=== PATIENT | male | born 1960 | race African-American/Black ===

== ENCOUNTER 2018-05-08 11:32 | Emergency (ER) | payer OTHER ==
[~2018-05-08 11:32] MED LIST: Iopamidol 370 76% 100 ML VIAL ONE
[2018-05-08 12:36] LABS: ALT (SGPT) 49 U/L (8-55); AST (SGOT) 30 U/L (5-34); Alkaline Phosphatase 62 U/L (40-150); Anion Gap 11 mmol/L (10-20); BUN (Urea Nitrogen) 11 mg/dL (8.4-25.7); Bilirubin, Total 0.4 mg/dL (0.2-1.2); CK (CPK) 88 U/L (30-200); Calc. Creatinine Clearance 0 mL/min (70-130); Calcium 9.5 mg/dL (7.8-10.44); Carbon Dioxide 25 mmol/L (22-29); Chloride 105 mmol/L (98-107); Estimated GFR-MDRD Greater than 90; Globulin 3.2 g/dL (2.4-3.5); Glucose 79 mg/dL (70-105); Potassium 4.3 mmol/L (3.5-5.1); Protein, Total 7.2 g/dL (6.0-8.3); Sodium 137 mmol/L (136-145)
[2018-05-08 12:37] LABS: CKMB 0.8 ng/mL (0-6.6)
[2018-05-08 12:40] LABS: Band 3 % (5-11); Eosinophils 3 % (0-10); Hemoglobin 12.6 g/dL (14.0-18.0); Hypochromia SLIGHT = 6-15 cells (100X) (0-5/hpf); Lymphocytes 34 % (21-51); MDiff Complete? YES; Mean Corpuscular HGB CONC 29.7 g/dL (32.0-36.0); Mean Corpuscular Hemoglobin 22.9 pg (27.0-31.0); Mean Corpuscular Volume 76.9 fL (78.0-98.0); Mean Platelet Volume 9.4 fL (7.4-10.4); Monocytes 7 % (0-10); Neutrophil 48 % (42-75); Platelet Count 181 thou/uL (130-400); RBC Distribution Width 12.5 % (11.5-14.5); Reactive Lymphocytes 5 % (0-10); Red Blood Cell (RBC) Count 5.52 mill/uL (4.70-6.10); White Blood Cell (WBC) Count 6.9 thou/uL (4.8-10.8)
--- NOTE | 2018-05-08 13:11 | CT ---
CT BRAIN NONCONTRAST: HISTORY: 57-year-old male status post syncope, dizziness, and lightheadedness. FINDINGS: There is no midline shift or any other mass effect. There is no evidence of acute intracranial hemor rhage, large cortical infarct, obstructive hydrocephalus, or extraaxial fluid collection. The calvar ium is intact. IMPRESSION: No acute intracranial findings. [place] POS: [facility]
[2018-05-08] MEDS ORDERED: Ketorolac Tromethamine 30 MG/ML VIAL ONE (13:22)
--- NOTE | 2018-05-08 14:02 | CT ---
CT CERVICAL SPINE WITH CORONAL AND SAGITTAL REFORMATIONS: Date: 05/08/18 HISTORY: Injury, neck pain, syncope. FINDINGS/IMPRESSION: There is loss of cervical lordosis and straightening of the cervical spine. Degenerative changes are present, most prominent at C4-5-6-7 levels. No acute fracture or subluxation is seen. No facet malali gnment is noted. There is suggestion of bullous change with herniation of the right lung apex. Anjana r, since the possibility of a pneumothorax cannot be completely excluded, recommend evaluation with C T scan. POS: [facility]
--- NOTE | 2018-05-08 14:35 | CT ---
CT OF THE CHEST WITH CONTRAST: Date: 05/08/18 COMPARISON: None. HISTORY: Dizziness. Patient doesn't feel right. Patient walked into the [facility], sat down, and passed out. TECHNIQUE: Multiple contiguous axial images were obtained in a CT of the chest with contrast. Coronal reformats were performed. FINDINGS: The heart is normal in size without focal cardiac abnormality. No hilar or mediastinal lymphadenopath y seen. There is a bulla in the right lung apex. No focal infiltrates or masses are seen in the lungs. No pne umothorax or pleural effusion seen. The chest wall soft tissues are unremarkable. The visualized subdiaphragmatic structures are unremark able. The bones are unremarkable. IMPRESSION: No evidence of acute intrathoracic abnormality. POS: [facility]
== END 2018-05-08 15:28 ==
LOC: NAV ERS 11:32
DX: R55 Syncope and collapse (principal); H81.10 Benign paroxysmal vertigo, unspecified ear; R00.1 Bradycardia, unspecified; G89.29 Other chronic pain; M54.2 Cervicalgia; I10 Essential (primary) hypertension; J45.909 Unspecified asthma, uncomplicated; F17.210 Nicotine dependence, cigarettes, uncomplicated; Z79.899 Other long term (current) drug therapy; Z79.82 Long term (current) use of aspirin
CPT/HCPCS: 36415; 70450; 71260; 72125; 80053; 82550; 82553; 84443; 84484; 85025; 93005; 96374; J1885